=== PATIENT | female | born 1950 | race Caucasian/White ===

== ENCOUNTER 2017-12-27 13:33 | Emergency (ER) | payer MEDICARE | END 2017-12-27 13:57 | disposition home or self-care (01) | LOC: BURERS 13:33 | DX: A49.02 Methicillin resistant Staphylococcus aureus infection, unspecified site (principal); F41.9 Anxiety disorder, unspecified; E05.00 Thyrotoxicosis with diffuse goiter without thyrotoxic crisis or storm; Z79.899 Other long term (current) drug therapy | CPT/HCPCS: 99282 ==